=== PATIENT | female | born 1965 | race Caucasian/White ===

== ENCOUNTER 2022-09-23 07:07 | Day surgery (SDC) | payer OTHER ==
[2022-09-19 11:32] VITALS: BMI 18.8
[2022-09-23] MEDS ORDERED: PROPOFOL 40 ML ONE (07:10)
[2022-09-23] MEDS ORDERED: Lidocaine 1% PF 5 ML VIAL ONE ×2 (07:10→07:11)
[2022-09-23] MEDS ORDERED: Rocuronium Bromide 10 MG/ML (10ML VIAL) ONE (07:11)
[2022-09-23] MEDS ORDERED: Lidocaine 2% PF 5 ML VIAL ONE (07:12)
[2022-09-23] MEDS ORDERED: Oxymetazoline HCl 0.05% ( 15 ML ) ONE (07:51)
[2022-09-23] MEDS ORDERED: Fentanyl 100 MCG/2 ML VIAL ONE (08:52)
[2022-09-23] MEDS ORDERED: Lidocaine 1% w/Epinephrine 1:100K 30 ML VIAL ONE (08:55)
[2022-09-23] MEDS ORDERED: Midazolam HCl 2 mg/2 ml Vial ONE (08:56)
[2022-09-23] MEDS ORDERED: SUGAMMADEX SODIUM 200 MG/2 ML VIAL ONE (09:02)
[2022-09-23] MEDS ORDERED: Ondansetron PF 4 MG/2 ML Vial ONE (09:03)
[2022-09-23] MEDS ORDERED: Dexamethasone 20 MG/5 ML VIAL ONE (09:03)
[2022-09-23] MEDS ORDERED: ePHEDrine Sulfate 50 MG/10 ML VIAL ONE (09:33)
[2022-09-23] MEDS ORDERED: Esmolol 100 MG/10 ML VIAL ONE (09:54)
[2022-09-23] MEDS ORDERED: Mupirocin 2% Ointment 22 GM Tube ONE (09:55)
[2022-09-23] MEDS ORDERED: HYDROcodone/Acetaminophen 5/325 mg Tablet ONE ×2 (11:01→11:36)
== END 2022-09-23 12:32 | disposition home or self-care (01) ==
LOC: CSHSDC 07:07
PROVIDERS: ATTEND Otolaryngology Plastic Surgery within the Head & Neck
DX: J34.2 Deviated nasal septum (principal); J34.3 Hypertrophy of nasal turbinates; J34.89 Other specified disorders of nose and nasal sinuses; Z79.899 Other long term (current) drug therapy; J45.909 Unspecified asthma, uncomplicated; I10 Essential (primary) hypertension; F32.A Depression, unspecified; F41.9 Anxiety disorder, unspecified; G43.909 Migraine, unspecified, not intractable, without status migrainosus; F17.210 Nicotine dependence, cigarettes, uncomplicated
CPT/HCPCS: C1889; J1100; J2001; J2250; J2405; J2704; J3010

== ENCOUNTER 2022-09-29 18:03 | Inpatient (IN) | payer OTHER ==
[2022-09-29] MEDS ORDERED: Morphine 2 MG/ML VIAL ONE (18:21)
[2022-09-29] MEDS ORDERED: Midazolam HCl 2 mg/2 ml Vial ONE (18:46)
[2022-09-29] MEDS ORDERED: PROPOFOL 20 ML ONE (18:46)
[2022-09-29] MEDS ORDERED: Fentanyl 100 MCG/2 ML VIAL ONE ×4 (18:46→21:17)
[2022-09-29] MEDS ORDERED: Ondansetron PF 4 MG/2 ML Vial ONE (18:47)
[2022-09-29] MEDS ORDERED: Dexamethasone 20 MG/5 ML VIAL ONE (18:47)
[2022-09-29] MEDS ORDERED: Lidocaine 1% PF 5 ML VIAL ONE (18:47)
[2022-09-29] MEDS ORDERED: Rocuronium Bromide 10 MG/ML (10ML VIAL) ONE (18:47)
[2022-09-29] MEDS ORDERED: Lidocaine 1% w/Epinephrine 1:100K 30 ML VIAL ONE (18:48)
[2022-09-29] MEDS ORDERED: Succinylcholine 200 MG/10 ml SYRINGE FS ONE (18:49)
[2022-09-29] MEDS ORDERED: Glycopyrrolate 0.2 MG/ML 5 ML SYRINGE ONE (18:49)
[2022-09-29] MEDS ORDERED: Lidocaine 1% w/Epinephrine 1:100K 20 ML VIAL ONE (18:49)
[2022-09-29] MEDS ORDERED: Oxymetazoline HCl 0.05% ( 15 ML ) ONE ×2 (18:49→20:13)
[2022-09-29] MEDS ORDERED: SUGAMMADEX SODIUM 200 MG/2 ML VIAL ONE (18:58)
[2022-09-29] MEDS ORDERED: CEFAZOLIN 1 GM VIAL ONE (19:18)
[2022-09-29] MEDS ORDERED: Bacitracin 1 PK ONE ×2 (20:15)
[2022-09-29] MEDS ORDERED: Labetalol HCl 100 MG/20 ML VIAL ONE (20:39)
[2022-09-29 21:03] LABS: Hemoglobin 10.6 g/dL (12.0-15.5)
[2022-09-29] MEDS ORDERED: Ventolin HFA Inhaler 60 PUFF INHALER INH PRN (22:54)
[2022-09-29] MEDS ORDERED: Dextrose 5 %-0.45 % NaCl 1,000 ML IV SCH (23:00)
[2022-09-29] MEDS ORDERED: Lactated Ringer's 1,000 ML IV SCH (23:00)
[2022-09-29] MEDS ORDERED: Rosuvastatin 10 MG TAB PO SCH (23:00)
[2022-09-29] MEDS ORDERED: QUEtiapine 100 MG TAB PO SCH (23:00)
[2022-09-29] MEDS ORDERED: ALPRAZolam 0.5 MG TAB PO SCH (23:00)
[2022-09-29] MEDS ORDERED: Nortriptyline HCl 25 MG CAP PO SCH (23:00)
[2022-09-29] MEDS: Morphine 2 MG/ML VIAL SLOW IVP PRN (23:08)
[2022-09-29 23:14] VITALS: BMI 19.5
[2022-09-29] MEDS: CEFAZOLIN 1 GM in Sodium Chloride 0.9% 100 ML IVPB SCH (23:51)
[2022-09-30] MEDS: Ondansetron HCl/PF 8 MG, Admixture Fee 1 EACH in Sodium Chloride 0.9% 50 ML IVPB PRN ×3 (00:12→07:00)
[2022-09-30] MEDS ORDERED: Lactated Ringer's 1,000 ML IV SCH (03:30)
[2022-09-30] MEDS: Morphine 2 MG/ML VIAL SLOW IVP PRN ×4 (03:30→17:43)
[2022-09-30 03:43] LABS: #Monocytes 0.3 10x3/uL (0.0-1.1); %Basophils 0.1 % (0.0-2.0); %Lymphocytes 8.2 % (18.0-47.0); %Monocytes 2.9 % (0.0-10.0); %Neutrophils 88.6 % (40.0-75.0); Hemoglobin 9.4 g/dL (12.0-15.5); Mean Corpuscular HGB CONC 32.6 g/dL (32.0-36.0); Platelet Count 262 10x3/uL (150-450); Red Blood Cell (RBC) Count 3.13 10x6/uL (3.90-5.03); White Blood Cell (WBC) Count 10.1 10x3/uL (3.5-10.5)
[2022-09-30 03:57] LABS: Anion Gap 16 mmol/L (10-20); BUN (Urea Nitrogen) 25 mg/dL (9.8-20.1); Calc. Creatinine Clearance 70 mL/min (70-130); Calcium 8.6 mg/dL (7.8-10.44); Carbon Dioxide 21 mmol/L (22-29); Chloride 107 mmol/L (98-107); Estimated GFR 77; Glucose 126 mg/dL (70-105); Magnesium 1.7 mg/dL (1.6-2.6); Potassium 4.6 mmol/L (3.5-5.1); Sodium 139 mmol/L (136-145)
[2022-09-30 04:39] LABS: Troponin I 4.921 ng/mL (< 0.028)
[2022-09-30] MEDS ORDERED: Aspirin Chewable 81 MG TAB PO SCH (05:00)
[2022-09-30] MEDS ORDERED: Metoprolol Tartrate 25 MG TAB PO SCH (05:00)
[2022-09-30] MEDS: Sodium Chloride 0.9% 1,000 ML IV SCH ×2 (05:09→17:44)
[2022-09-30] MEDS ORDERED: Nitroglycerin 0.4 MG TAB (25 Tab Bottle) SL PRN (05:14)
[2022-09-30 08:38] LABS: Troponin I 8.501 ng/mL (< 0.028)
[2022-09-30] MEDS: Aspirin 81 mg Enteric Coated Tablet PO SCH (08:48)
[2022-09-30] MEDS ORDERED: Magnesium 2 GM/50 ML(in water) 2 GM in Premix Bag 1 BAG IVPB SCH (09:00)
[2022-09-30] MEDS: CEFAZOLIN 1 GM in Sodium Chloride 0.9% 100 ML IVPB SCH ×3 (09:03→23:46)
[2022-09-30 09:34] LABS: Hemoglobin 10.3 g/dL (12.0-15.5); Platelet Count 255 10x3/uL (150-450)
[2022-09-30] MEDS: Acetaminophen/Codeine 30-300mg Tablet PO PRN ×2 (09:46→22:06)
[2022-09-30 10:13] LABS: Troponin I 10.012 ng/mL (< 0.028)
[2022-09-30 14:46] LABS: Hemoglobin 10.8 g/dL (12.0-15.5); Platelet Count 273 10x3/uL (150-450)
[2022-09-30] MEDS: Metoprolol Tartrate 25 MG TAB PO SCH ×2 (15:43→20:54)
[2022-09-30] MEDS: Sodium Chloride 0.65% Nasal 44 ML BOT EA NARE SCH ×2 (17:36→21:11)
[2022-09-30 20:26] LABS: Hemoglobin 10.3 g/dL (12.0-15.5); Platelet Count 276 10x3/uL (150-450)
[2022-09-30] MEDS: Gabapentin 300 MG CAP PO SCH (20:53)
[2022-09-30] MEDS: Nortriptyline HCl 25 MG CAP PO SCH (20:53)
[2022-09-30] MEDS: QUEtiapine 100 MG TAB PO SCH (20:54)
[2022-09-30] MEDS: ALPRAZolam 0.5 MG TAB PO SCH (20:54)
[2022-09-30] MEDS ORDERED: Lactated Ringer's 250 ML IV SCH (22:30)
[2022-09-30] MEDS ORDERED: Albumin 25% 25 GM/100 ML BOT IVPB SCH (23:00)
[2022-09-30] MEDS ORDERED: Midodrine HCl 2.5 MG TAB PO SCH (23:00)
[2022-10-01] MEDS: Morphine 2 MG/ML VIAL SLOW IVP PRN ×3 (02:44→19:38)
[2022-10-01 03:35] LABS: Platelet Count 240 10x3/uL (150-450)
[2022-10-01 03:36] LABS: #Monocytes 0.6 10x3/uL (0.0-1.1); #Neutrophils 9.7 10x3/uL (1.5-8.4); %Basophils 0.1 % (0.0-2.0); %Monocytes 5.2 % (0.0-10.0); %Neutrophils 78.2 % (40.0-75.0); Hemoglobin 8.9 g/dL (12.0-15.5); Mean Corpuscular HGB CONC 32.7 g/dL (32.0-36.0); Mean Corpuscular Volume 91.6 fl (81.6-98.3); Platelet Count 220 10x3/uL (150-450); RBC Distribution Width 14.2 % (11.5-14.5); Red Blood Cell (RBC) Count 2.97 10x6/uL (3.90-5.03); White Blood Cell (WBC) Count 12.4 10x3/uL (3.5-10.5)
[2022-10-01 03:46] LABS: Anion Gap 11 mmol/L (10-20); BUN (Urea Nitrogen) 15 mg/dL (9.8-20.1); Calc. Creatinine Clearance 74 mL/min (70-130); Calcium 8.2 mg/dL (7.8-10.44); Carbon Dioxide 21 mmol/L (22-29); Chloride 109 mmol/L (98-107); Estimated GFR 82; Glucose 105 mg/dL (70-105); Magnesium 2.2 mg/dL (1.6-2.6); Potassium 3.9 mmol/L (3.5-5.1); Sodium 137 mmol/L (136-145)
[2022-10-01] MEDS: Acetaminophen/Codeine 30-300mg Tablet PO PRN (06:24)
[2022-10-01] MEDS ORDERED: tiZANidine HCl 4 MG TAB PO SCH (06:45)
[2022-10-01] MEDS: Sodium Chloride 0.9% 1,000 ML IV SCH (07:05)
[2022-10-01] MEDS: CEFAZOLIN 1 GM in Sodium Chloride 0.9% 100 ML IVPB SCH ×2 (07:59→16:16)
[2022-10-01] MEDS: Gabapentin 300 MG CAP PO SCH ×2 (08:01→22:57)
[2022-10-01] MEDS: Metoprolol Tartrate 25 MG TAB PO SCH ×4 (08:01→20:17)
[2022-10-01] MEDS: Rosuvastatin 10 MG TAB PO SCH (08:01)
[2022-10-01] MEDS: DULoxetine 30 MG CAP PO SCH (08:01)
[2022-10-01] MEDS: Montelukast Sodium 10 mg Tablet PO SCH (08:02)
[2022-10-01] MEDS: ALPRAZolam 0.5 MG TAB PO SCH ×2 (08:02→21:26)
[2022-10-01] MEDS: Aspirin 81 mg Enteric Coated Tablet PO SCH (08:02)
[2022-10-01] MEDS: Sodium Chloride 0.65% Nasal 44 ML BOT EA NARE SCH ×4 (08:02→22:04)
[2022-10-01 08:39] LABS: Hemoglobin 8.6 g/dL (12.0-15.5); Platelet Count 222 10x3/uL (150-450)
[2022-10-01] MEDS: HYDROcodone/Acetaminophen 10/325 mg Tablet PO PRN ×3 (12:13→21:02)
[2022-10-01] MEDS: tiZANidine HCl 4 MG TAB PO SCH ×2 (15:23→20:09)
[2022-10-01] MEDS: Nortriptyline HCl 25 MG CAP PO SCH (21:57)
[2022-10-01] MEDS: QUEtiapine 100 MG TAB PO SCH (21:58)
[2022-10-02] MEDS: CEFAZOLIN 1 GM in Sodium Chloride 0.9% 100 ML IVPB SCH ×4 (00:06→23:56)
[2022-10-02] MEDS: HYDROcodone/Acetaminophen 10/325 mg Tablet PO PRN ×5 (03:19→22:33)
[2022-10-02 03:41] LABS: #Monocytes 0.8 10x3/uL (0.0-1.1); #Neutrophils 7.3 10x3/uL (1.5-8.4); %Basophils 0.1 % (0.0-2.0); %Eosinophils 0.2 % (0.0-6.0); %Lymphocytes 18.3 % (18.0-47.0); %Monocytes 8.3 % (0.0-10.0); %Neutrophils 72.8 % (40.0-75.0); Hemoglobin 8.3 g/dL (12.0-15.5); Mean Corpuscular HGB CONC 32.7 g/dL (32.0-36.0); Mean Corpuscular Hemoglobin 30.1 pg (27.0-33.0); Mean Platelet Volume 9.5 fl (7.4-10.4); Platelet Count 199 10x3/uL (150-450); RBC Distribution Width 13.8 % (11.5-14.5); Red Blood Cell (RBC) Count 2.76 10x6/uL (3.90-5.03)
[2022-10-02 03:49] LABS: Anion Gap 12 mmol/L (10-20); BUN (Urea Nitrogen) 10 mg/dL (9.8-20.1); Calc. Creatinine Clearance 82 mL/min (70-130); Calcium 8.3 mg/dL (7.8-10.44); Carbon Dioxide 20 mmol/L (22-29); Chloride 107 mmol/L (98-107); Estimated GFR 93; Glucose 107 mg/dL (70-105); Sodium 135 mmol/L (136-145)
[2022-10-02] MEDS: tiZANidine HCl 4 MG TAB PO SCH (07:56)
[2022-10-02] MEDS: Sodium Chloride 0.65% Nasal 44 ML BOT EA NARE SCH ×4 (08:30→21:23)
[2022-10-02] MEDS: Ondansetron HCl/PF 8 MG, Admixture Fee 1 EACH in Sodium Chloride 0.9% 50 ML IVPB PRN (10:23)
[2022-10-02] MEDS: Rosuvastatin 10 MG TAB PO SCH (11:40)
[2022-10-02] MEDS: DULoxetine 30 MG CAP PO SCH (11:40)
[2022-10-02] MEDS: Montelukast Sodium 10 mg Tablet PO SCH (11:41)
[2022-10-02] MEDS: Aspirin 81 mg Enteric Coated Tablet PO SCH (11:41)
[2022-10-02] MEDS: Metoprolol Tartrate 25 MG TAB PO SCH ×2 (12:11→21:23)
[2022-10-02] MEDS ORDERED: Polyethylene Glycol 3350 17 GM Packet PO PRN (14:09)
[2022-10-02] MEDS: ALPRAZolam 0.5 MG TAB PO SCH ×2 (14:13→21:22)
[2022-10-02] MEDS: Gabapentin 300 MG CAP PO SCH ×2 (14:13→21:21)
[2022-10-02] MEDS ORDERED: Polyethylene Glycol 3350 17 GM Packet PO SCH (15:00)
[2022-10-02] MEDS: Cyclobenzaprine 10 MG TAB PO PRN (15:12)
[2022-10-02] MEDS: Nortriptyline HCl 25 MG CAP PO SCH (21:21)
[2022-10-02] MEDS: QUEtiapine 100 MG TAB PO SCH (21:22)
[2022-10-02] MEDS: Senokot S 8.6-50 MG TAB PO SCH (21:23)
[2022-10-03 03:31] LABS: #Eosinphils 0.1 10x3/uL (0.0-0.5); #Monocytes 1.1 10x3/uL (0.0-1.1); #Neutrophils 9.3 10x3/uL (1.5-8.4); %Basophils 0.3 % (0.0-2.0); %Eosinophils 0.4 % (0.0-6.0); %Monocytes 8.7 % (0.0-10.0); %Neutrophils 76.2 % (40.0-75.0); Hemoglobin 10.3 g/dL (12.0-15.5); Mean Corpuscular HGB CONC 33.2 g/dL (32.0-36.0); Mean Corpuscular Hemoglobin 30.2 pg (27.0-33.0); Mean Corpuscular Volume 90.9 fl (81.6-98.3); Mean Platelet Volume 9.7 fl (7.4-10.4); Platelet Count 206 10x3/uL (150-450); RBC Distribution Width 13.6 % (11.5-14.5); Red Blood Cell (RBC) Count 3.41 10x6/uL (3.90-5.03); White Blood Cell (WBC) Count 12.2 10x3/uL (3.5-10.5)
[2022-10-03 03:45] LABS: Anion Gap 12 mmol/L (10-20); BUN (Urea Nitrogen) 9 mg/dL (9.8-20.1); Calc. Creatinine Clearance 76 mL/min (70-130); Calcium 8.1 mg/dL (7.8-10.44); Carbon Dioxide 23 mmol/L (22-29); Chloride 105 mmol/L (98-107); Estimated GFR 85; Glucose 106 mg/dL (70-105); Magnesium 1.9 mg/dL (1.6-2.6); Potassium 4.2 mmol/L (3.5-5.1); Sodium 136 mmol/L (136-145)
[2022-10-03] MEDS: HYDROcodone/Acetaminophen 10/325 mg Tablet PO PRN ×4 (06:32→19:51)
[2022-10-03] MEDS ORDERED: Electrolyte Replacement Protocol 1 EACH FS SCH (07:45)
[2022-10-03] MEDS ORDERED: Magnesium 2 GM/50 ML(in water) 2 GM in Premix Bag 1 BAG IVPB SCH (08:00)
[2022-10-03] MEDS: CEFAZOLIN 1 GM in Sodium Chloride 0.9% 100 ML IVPB SCH ×2 (08:06→15:38)
[2022-10-03] MEDS: Aspirin 81 mg Enteric Coated Tablet PO SCH (08:58)
[2022-10-03] MEDS: Montelukast Sodium 10 mg Tablet PO SCH (08:58)
[2022-10-03] MEDS: Cyclobenzaprine 10 MG TAB PO PRN (08:58)
[2022-10-03] MEDS: Senokot S 8.6-50 MG TAB PO SCH ×2 (08:58→21:31)
[2022-10-03] MEDS: DULoxetine 30 MG CAP PO SCH (09:50)
[2022-10-03] MEDS: Rosuvastatin 10 MG TAB PO SCH (09:50)
[2022-10-03] MEDS: ALPRAZolam 0.5 MG TAB PO SCH ×2 (09:50→21:31)
[2022-10-03] MEDS: Sodium Chloride 0.65% Nasal 44 ML BOT EA NARE SCH ×3 (10:40→21:30)
[2022-10-03] MEDS: Metoprolol Tartrate 25 MG TAB PO SCH ×2 (11:34→21:30)
[2022-10-03] MEDS: Gabapentin 300 MG CAP PO SCH ×2 (13:50→21:31)
[2022-10-03] MEDS: QUEtiapine 100 MG TAB PO SCH (21:31)
[2022-10-03] MEDS: Nortriptyline HCl 25 MG CAP PO SCH (21:32)
[2022-10-04] MEDS: CEFAZOLIN 1 GM in Sodium Chloride 0.9% 100 ML IVPB SCH ×2 (00:07→07:46)
[2022-10-04 03:57] LABS: #Eosinphils 0.2 10x3/uL (0.0-0.5); #Monocytes 0.7 10x3/uL (0.0-1.1); %Basophils 0.5 % (0.0-2.0); %Eosinophils 2.2 % (0.0-6.0); %Monocytes 9.1 % (0.0-10.0); %Neutrophils 63.8 % (40.0-75.0); Hemoglobin 9.8 g/dL (12.0-15.5); Mean Corpuscular HGB CONC 33.1 g/dL (32.0-36.0); Mean Corpuscular Hemoglobin 30.7 pg (27.0-33.0); Mean Corpuscular Volume 92.8 fl (81.6-98.3); Mean Platelet Volume 9.8 fl (7.4-10.4); Platelet Count 241 10x3/uL (150-450); RBC Distribution Width 13.4 % (11.5-14.5); Red Blood Cell (RBC) Count 3.19 10x6/uL (3.90-5.03); White Blood Cell (WBC) Count 7.8 10x3/uL (3.5-10.5)
[2022-10-04 03:58] LABS: Phosphorus 3.2 mg/dL (2.3-4.7)
[2022-10-04 04:04] LABS: Anion Gap 11 mmol/L (10-20); BUN (Urea Nitrogen) 11 mg/dL (9.8-20.1); Calc. Creatinine Clearance 75 mL/min (70-130); Calcium 8.2 mg/dL (7.8-10.44); Carbon Dioxide 26 mmol/L (22-29); Chloride 107 mmol/L (98-107); Estimated GFR 84; Glucose 98 mg/dL (70-105); Magnesium 2.1 mg/dL (1.6-2.6); Potassium 4.5 mmol/L (3.5-5.1); Sodium 139 mmol/L (136-145)
[2022-10-04 07:25] VITALS: BP 111/54; TEMP 98.5
[2022-10-04] MEDS: ALPRAZolam 0.5 MG TAB PO SCH (08:01)
[2022-10-04] MEDS: Aspirin 81 mg Enteric Coated Tablet PO SCH (08:01)
[2022-10-04] MEDS: DULoxetine 30 MG CAP PO SCH (08:02)
[2022-10-04] MEDS: Gabapentin 300 MG CAP PO SCH (08:02)
[2022-10-04] MEDS: Metoprolol Tartrate 25 MG TAB PO SCH (08:02)
[2022-10-04] MEDS: Rosuvastatin 10 MG TAB PO SCH (08:03)
[2022-10-04] MEDS: Senokot S 8.6-50 MG TAB PO SCH (08:03)
[2022-10-04] MEDS: Montelukast Sodium 10 mg Tablet PO SCH (08:03)
[2022-10-04] MEDS: HYDROcodone/Acetaminophen 10/325 mg Tablet PO PRN (08:09)
== END 2022-10-04 09:39 | disposition home or self-care (01) | DRG 150 ==
LOC: CSHERS 18:03 → UNDOADMIN 22:21 → CSHTELE 22:21 → CSHICU 09-30 06:18
PROVIDERS: ADMIT Otolaryngology Plastic Surgery within the Head & Neck; ATTEND Internal Medicine
PROC: 2Y41X5Z Packing of Nasal Region using Packing Material (ICD-10-PCS; principal; 2022-09-29)
PROC: 09JK8ZZ Inspection of Nasal Mucosa and Soft Tissue, Via Natural or Artificial Opening Endoscopic (ICD-10-PCS; 2022-09-29)
PROC: 30233N1 Transfusion of Nonautologous Red Blood Cells into Peripheral Vein, Percutaneous Approach (ICD-10-PCS; 2022-09-30)
PROC: 30233J1 Transfusion of Nonautologous Serum Albumin into Peripheral Vein, Percutaneous Approach (ICD-10-PCS; 2022-09-30)
DX: R04.0 Epistaxis (principal); I21.A1 Myocardial infarction type 2; I51.81 Takotsubo syndrome; D62 Acute posthemorrhagic anemia; E87.1 Hypo-osmolality and hyponatremia; F41.9 Anxiety disorder, unspecified; F32.A Depression, unspecified; G43.909 Migraine, unspecified, not intractable, without status migrainosus; E78.5 Hyperlipidemia, unspecified; M19.90 Unspecified osteoarthritis, unspecified site; J45.20 Mild intermittent asthma, uncomplicated; M79.7 Fibromyalgia; G89.29 Other chronic pain; E83.42 Hypomagnesemia; N18.2 Chronic kidney disease, stage 2 (mild); F51.04 Psychophysiologic insomnia; I12.9 Hypertensive chronic kidney disease with stage 1 through stage 4 chronic kidney disease, or unspecified chronic kidney disease; Z98.890 Other specified postprocedural states; Z90.49 Acquired absence of other specified parts of digestive tract; Z87.891 Personal history of nicotine dependence
CPT/HCPCS: 36415; 36430; 71045; 80048; 82533; 83735; 84100; 84484; 85014; 85018; 85025; 85046; 85049; 86850; 86900; 86901; 93005; 93010; 93306; 94640; 94760; 94762; 96374; J0690; J1100; J2250; J2272; J2405; J2704; J3010; J3475; J3490; J7050; J7120; P9016; P9047